=== PATIENT | female | born 1980 | race Caucasian/White ===

== ENCOUNTER → 2023-11-16 | Outpatient (CLI) | payer BC, SELFPAY ==
--- NOTE | 2023-11-16 07:25 | MRI_ITS ---
HISTORY: SEIZURES. TECHNIQUE: Multiplanar and multisequence MR images of the brain were obtained before and after the intravenous administration of 15 cc Clariscan. 487 images. COMPARISON: None. FINDINGS: BRAIN PARENCHYMA: There are mild foci of increased T2 FLAIR signal in the bifrontal white matter. White matter. No enhancing lesion in the brain parenchyma. No abnormal focus of restricted diffusion. No acute intracranial hemorrhage identified. CSF SPACES: Cerebral ventricles, cortical sulci, and other extra-axial CSF spaces within normal limits in size for age. No significant midline shift or other mass effect.No extra-axial fluid collection. VASCULAR SYSTEM: Major intracranial flow voids are maintained. PARANASAL SINUSES AND MASTOID AIR CELLS: No significant air fluid levels. ORBITS: Symmetric contents. MRI/Brain W/WO Contrast IMPRESSION: No evidence for enhancing intracranial mass or acute infarct. Very mild chronic white matter changes. Electronically Signed: Aure Brewer MD at 12:15 EDT ,
== END | disposition home or self-care (01) ==
LOC: MRI 07:23
PROVIDERS: PCP Family Medicine; Visit Provider Psychiatry & Neurology Neurology
DX: R56.9 Unspecified convulsions (principal)
CPT/HCPCS: 70553; A9575